=== PATIENT | male | born 1995 | race Two or more races ===

== ENCOUNTER 2024-12-26 03:15 | Emergency (ER) | payer MEDICAID ==
[~2024-12-26] VITALS: Ht 172.7 cm; Wt 77.1 kg
[2024-12-26 03:58] VITALS: BP 119/79; TEMP 98
[2024-12-26] MEDS ORDERED: AMOXICILLIN TRIHYDRATE 250 MG CAPSULE ONE (04:03)
[2024-12-26] MEDS ORDERED: IBUPROFEN 600 MG TABLET ONE (04:04)
[2024-12-26] MEDS: AMOXICILLIN TRIHYDRATE 500 MG CAPSULE PO ONE (04:07)
[2024-12-26] MEDS ORDERED: IBUPROFEN 200 MG TABLET ONE (04:08)
[2024-12-26] MEDS: IBUPROFEN 400 MG TABLET PO ONE (04:09)
[2024-12-26] MEDS ORDERED: AMOX500C2 PO (04:41)
[2024-12-26 04:46] VITALS: O2SAT 99
== END 2024-12-26 04:46 | disposition home or self-care (01) ==
LOC: ER 03:28
DX: K08.89 Other specified disorders of teeth and supporting structures (principal)

== ENCOUNTER 2025-02-01 23:38 | Emergency (ER) | payer SELFPAY ==
[~2025-02-01 23:38] MED LIST: AMOX500C2 PO
== END 2025-02-02 01:30 | disposition left against medical advice (07) ==
LOC: ER 23:41
DX: F10.129 Alcohol abuse with intoxication, unspecified (principal); Z53.21 Procedure and treatment not carried out due to patient leaving prior to being seen by health care provider; Y90.9 Presence of alcohol in blood, level not specified